=== PATIENT | male | born 1935 ===

== ENCOUNTER 2018-08-21 21:42 | Inpatient (IN) | payer MEDICARE, OTHER ==
[~2018-08-21] VITALS: Ht 167.6 cm; Wt 56.5 kg
[2018-08-21] MEDS ORDERED: FOLI-49 PO (22:39)
[2018-08-21] MEDS ORDERED: ASPI-817 PO (22:39)
[2018-08-21] MEDS ORDERED: ATEN50TA PO (22:39)
[2018-08-21] MEDS ORDERED: TAMS0.4C2 PO (22:39)
[2018-08-21] MEDS ORDERED: DONE5TAB46 PO (22:39)
[2018-08-21] MEDS ORDERED: PANT40TA4 PO (22:39)
[2018-08-21] MEDS ORDERED: PIOG45TA64 PO (22:39)
[2018-08-21] MEDS ORDERED: AMLO2.5T78 PO (22:39)
[2018-08-21] MEDS ORDERED: GLIP5TAB13 PO (22:39)
[2018-08-21] MEDS ORDERED: ATOR20TA65 PO (22:39)
[2018-08-21] MEDS ORDERED: LEVE500T8 PO (22:39)
[2018-08-21] MEDS ORDERED: POTA10TA37 PO (22:39)
[2018-08-22] VITALS (15 sets, daily range): BP systolic 108–148; BP diastolic 45–88; PULSE 50–78; RESP 11–21; Ht 167.6 cm; Wt 56.5 kg
[2018-08-22] MEDS ORDERED: ONDANSETRON 4 MG INJ IV PRN (02:00)
[2018-08-22] MEDS ORDERED: NACL 0.9% 3 ML SYG IV SCH (02:00)
[2018-08-22] MEDS ORDERED: BISACODYL (EC) 5 MG TAB PO PRN (02:00)
[2018-08-22] MEDS ORDERED: ACETAMINOPHEN 325 MG TAB PO PRN (02:00)
[2018-08-22] MEDS ORDERED: DOCUSATE SODIUM 100 MG CAP PO PRN (02:00)
--- NOTE | 2018-08-22 02:00 | ERD ---
ER Documentation Chief Complaint Chief Complaint bib icu charge nurse from icu for aloc upon family HPI This is an 83-year-old male brought in by rescue charges from ICU after having a syncopal episode after hearing with family member passing. Patient denies chest pain palpitations nausea vomiting or chills. Does have history of cardiac disease. Denies other current complaints. No focal neurological complaints. Did not has had. Patient is wheelchair-bound normally and slumped in his wheelchair. No seizure-like activity was noted. No tongue biting or incontinence noted. ROS All systems reviewed and are negative except as per history of present illness. Medications Home Meds Reported Medications Potassium Chloride* (K-Dur*) 10 Meq Tab.prt.sr, 10 MEQ PO for 30 Days, #30 08/21/18 Pioglitazone Hcl* (Pioglitazone Hcl*) 45 Mg Tablet, 45 MG PO DAILY 08/21/18 Atorvastatin Calcium (Atorvastatin Calcium) 20 Mg Tablet, 20 MG PO QHS for 30 Days, #30 08/21/18 Donepezil* (Aricept*) 5 Mg Tablet, 5 MG PO DAILY for 30 Days, #30 08/21/18 Aspirin* (Aspirin* EC) 81 Mg Tablet.dr, 81 MG PO DAILY for 30 Days, #30 08/21/18 Amlodipine Besylate* (Amlodipine Besylate*) 2.5 Mg Tablet, 2.5 MG PO DAILY for 30 Days, #30 08/21/18 Atenolol* (Atenolol*) 50 Mg Tablet, 50 MG PO DAILY for 30 Days, #60 08/21/18 Folic Acid* (Folic Acid*) 1 Mg Tablet, 1 MG PO DAILY for 30 Days, #30 08/21/18 Pantoprazole* (Pantoprazole*) 40 Mg Tablet., 40 MG PO DAILY for 90 Days, #90 08/21/18 Glipizide* (Glipizide*) 5 Mg Tablet, 5 MG PO DAILY for 90 Days, #90 08/21/18 Tamsulosin Hcl* (Tamsulosin Hcl*) 0.4 Mg Cap.er.24h, 0.4 MG PO QHS for 90 Days, #90 take 1 capsule by mouth at bedtime; 90 Days Quantity 08/21/18 Levetiracetam* (Levetiracetam*) 500 Mg Tablet, 500 MG PO BID for 90 Days take 1 tablet by mouth twice a day; 90 Days Quantity 08/21/18 Allergies Allergies: Coded Allergies: No Known Allergy (Unverified , 08/21/18) PMhx/Soc Hx Neurological Disorder: Yes (cva) Hx Cardiac Disorders: Yes (htn) Hx Alcohol Use: No Hx Substance Use: No Hx Tobacco Use: No Smoking Status: Never smoker Physical Exam Vitals Vital Signs Date Temp Pulse Resp B/P (MAP) Pulse Ox O2 O2 Flow FiO2 Time Delivery Rate 08/22/18 55 11 80/41 (54) 99 Room Air 01:00 08/22/18 98.7 55 12 90/47 (61) 100 Room Air 00:34 08/21/18 98.7 45 12 100/41 100 Room Air 23:31 (60) 08/21/18 98.7 53 15 99/41 (60) 98 Room Air 22:33 08/21/18 98.7 52 15 98/54 (69) 98 21:52 Physical Exam Const: No acute distress Head: Atraumatic Eyes: Normal Conjunctiva ENT: Normal External Ears, Nose and Mouth. Neck: Full range of motion. No meningismus. Resp: Clear to auscultation bilaterally Cardio: Regular rate and rhythm, no murmurs Abd: Soft, non tender, non distended. Normal bowel sounds Skin: No petechiae or rashes Back: No midline or flank tenderness Ext: No cyanosis, or edema Neur: Awake and alert Psych: Normal Mood and Affect Result Diagram: 08/21/18219908/21/182199 Results 24 hrs Laboratory Tests Test 08/21/18 22:00 White Blood Count 5.2 10^3/ul Red Blood Count 3.96 10^6/ul Hemoglobin 11.9 g/dl Hematocrit 36.8 % Mean Corpuscular Volume 92.9 fl Mean Corpuscular Hemoglobin 30.1 pg Mean Corpuscular Hemoglobin Concent 32.3 g/dl Red Cell Distribution Width 11.9 % Platelet Count 143 10^3/UL Mean Platelet Volume 9.7 fl Immature Granulocytes % 0.200 % Neutrophils % 36.9 % Lymphocytes % 46.6 % Monocytes % 6.2 % Eosinophils % 8.9 % Basophils % 1.2 % Nucleated Red Blood Cells % 0.0 /100WBC Immature Granulocytes # 0.010 10^3/ul Neutrophils # 1.9 10^3/ul Lymphocytes # 2.4 10^3/ul Monocytes # 0.3 10^3/ul Eosinophils # 0.5 10^3/ul Basophils # 0.1 10^3/ul Nucleated Red Blood Cells # 0.0 10^3/ul Sodium Level 135 mmol/L Potassium Level 4.4 mmol/L Chloride Level 97 mmol/L Carbon Dioxide Level 29 mmol/L Anion Gap 9 Blood Urea Nitrogen 17 mg/dl Creatinine 1.03 mg/dl Est Glomerular Filtrat Rate mL/min mL/min Glucose Level 219 mg/dl Calcium Level 8.9 mg/dl Total Bilirubin 0.5 mg/dl Direct Bilirubin 0.00 mg/dl Indirect Bilirubin 0.5 mg/dl Aspartate Amino Transf (AST/SGOT) 31 IU/L Alanine Aminotransferase (ALT/SGPT) 18 IU/L Alkaline Phosphatase 73 IU/L Troponin I 0.014 ng/ml B-Type Natriuretic Peptide 647 PG/ML Total Protein 6.8 g/dl Albumin 3.8 g/dl Globulin 3.00 g/dl Albumin/Globulin Ratio 1.26 Procedures/MDM EKG: Rate/Rhythm: [Normal Sinus Rhythm] QRS, ST, T-waves: [No changes consistent w/ acute ischemia] Impression: [No evidence of ischemia or arrhythmia] Chest X-ray 1V Interpreted by me: Soft Tissue: No acute abnormalities Bones: No acute abnormalities Mediastinum/Cardiac Silhouette/Lungs: [No acute abnormalities] Patient's syncopal symptoms are unstable at this time and require inpatient workup. No evidence of PE or dissection at this time but occult ischemia or fat al dysrhythmia cannot be ruled out. Patient will be admitted to Dr. Jim at 1:55 AM Departure Diagnosis: Primary Impression: Syncope Syncope type: unspecified Qualified Codes: R55 - Syncope and collapse Condition: Serious REX THOMAS Aug 22, 2018 02:00
[2018-08-22] MEDS ORDERED: DEXTROSE 50% 50 ML SYRINGE IV PRN ×2 (02:30)
[2018-08-22] MEDS ORDERED: GLUCOSE GEL 15 GRAM TUBE PO PRN ×2 (02:30)
[2018-08-22] MEDS ORDERED: GLUCAGON 1 MG INJ IM PRN (02:30)
[2018-08-22] MEDS ORDERED: GLUCOSE GEL 15 GRAM TUBE BUCCAL PRN (02:30)
[2018-08-22] MEDS ORDERED: SOD CHLORIDE 0.9% 1,000 ML IV ONE (02:30)
--- NOTE | 2018-08-22 03:27 | HP ---
Date/Time of Note Date/Time of Note DATE: 08/22/18 TIME: 03:14 Assessment/Plan VTE Prophylaxis SCD applied (from Nsg): Yes Pharmacological prophylaxis: NA/contraindicated Pharm contraindication: low risk/ambulating Assessment/Plan Hospital Course This is a 83-year-old male being admitted to the telemetry floor for: #1 syncope: Neurocardiogenic versus cardiogenic versus vasovagal: Patient is somnolent but arousable however he is not able to answer questions appropriately. EKG shows sinus bradycardia at approximately 46 bpm. Patient's blood pressures were also noted to be hypotensive. He does appear clinically dry. At the current time will obtain a stat CT of the head without contrast. We will also give him a 1 L bolus of normal saline. Labs at the current time appear to be a unremarkable aside from a hemoglobin of 11.9. Will check orthostatic vital signs. Will check an echocardiogram, carotid Doppler. Check hemoglobin A1c, lipid panel, TSH, monitor closely on telemetry. Consult cardiology. Will hold beta-jose and blood pressure medications given sinus bradycardia and hypotension. #2 sinus bradycardia: Monitor closely on telemetry, will hold beta-jose. Consult cardiology. Will check an echocardiogram. #3 hypotension: Suspect dehydration, patient is afebrile, normal white blood cell count. At the current time we will give him a liter bolus of normal saline. Will hold patient's beta blockers and blood pressure medications. #4 hypertension: Hold home BP meds given #3. #5 diabetes mellitus: We will check hemoglobin C, hold home oral medication at the current time, insulin sliding scale #6 BPH: Hold Flomax at the current time given hypotension #7 dementia: Resume omeprazole #8 DVT GI prophylaxis: SCDs, no GI prophylaxis indicated Further treatment strategy will be implemented as per the clinical course. We will need to corroborate history with the family in the a.m., there is no family available at the bedside Reviewed the patient. Result Diagram: 08/21/18219908/21/182199 Results 24hrs Laboratory Tests Test 08/21/18 22:00 White Blood Count 5.2 Red Blood Count 3.96 L Hemoglobin 11.9 L Hematocrit 36.8 L Mean Corpuscular Volume 92.9 Mean Corpuscular Hemoglobin 30.1 Mean Corpuscular Hemoglobin Concent 32.3 Red Cell Distribution Width 11.9 Platelet Count 143 Mean Platelet Volume 9.7 Immature Granulocytes % 0.200 Neutrophils % 36.9 L Lymphocytes % 46.6 Monocytes % 6.2 Eosinophils % 8.9 H Basophils % 1.2 Nucleated Red Blood Cells % 0.0 Immature Granulocytes # 0.010 Neutrophils # 1.9 Lymphocytes # 2.4 Monocytes # 0.3 Eosinophils # 0.5 Basophils # 0.1 Nucleated Red Blood Cells # 0.0 Sodium Level 135 Potassium Level 4.4 Chloride Level 97 Carbon Dioxide Level 29 Anion Gap 9 Blood Urea Nitrogen 17 Creatinine 1.03 Est Glomerular Filtrat Rate mL/min Glucose Level 219 Calcium Level 8.9 Total Bilirubin 0.5 Direct Bilirubin 0.00 Indirect Bilirubin 0.5 Aspartate Amino Transf (AST/SGOT) 31 Alanine Aminotransferase (ALT/SGPT) 18 Alkaline Phosphatase 73 Troponin I 0.014 B-Type Natriuretic Peptide 647 H Total Protein 6.8 Albumin 3.8 Globulin 3.00 Albumin/Globulin Ratio 1.26 HPI/ROS Admit Date/Time Admit Date/Time Hx of Present Illness Chief complaint: Cole almonte called as patient was noted to syncopized in the ICU following family stat The following history was obtained from the ED chart documentation as well as from the nurse as patient was unable to provide adequate history. Patient is a 83-year-old male who was brought in to the ED from the ICU after having a syncopal episode. According to the RN the patient was with the family at the bedside and had a syncopal episode approximately 30 minutes after the of his in the ICU. Patient was immediately taken to the ER where he was noted to have a low BP and low heart rate. As per the [employer] EXAMINER the patient was sitting on the wheelchair and he slumped over but he did not fall to the ground. Patient however it did appear altered and was initially unresponsive. Upon my examination at the bedside the patient is arousable however he does appear confused. He is able to move all 4 of his extremities. No facial droop noted. Skin does appear dry as well as mucous membranes. Allergies: NKDA Medications: See LUCAS MARTÍNEZ Subjective hx not possible: other (Altered, unable to provide adequate history) PMH/Family/Social Past Medical History Seizure disorder, hypertension, diabetes mellitus, BPH, hyperlipidemia, dementia Medications Current Medications Atorvastatin Calcium (Lipitor) 20 mg QHS PO ; Start 08/22/18 at 21:00 Donepezil HCl (Aricept) 5 mg DAILY PO ; Start 08/22/18 at 09:00 Folic Acid (Folic Acid) 1 mg DAILY PO ; Start 08/22/18 at 09:00 Levetiracetam (Keppra) 500 mg BID PO ; Start 08/22/18 at 09:00 Pantoprazole (Protonix Tab) 40 mg DAILY@0600 PO ; Start 08/22/18 at 06:00 IV Flush (NS 3 ml) 3 ml PER PROTOCOL IV ; Start 08/22/18 at 02:00 Ondansetron HCl (Zofran Inj) 4 mg Q6H PRN IV NAUSEA AND/OR VOMITING; Start 08/22/18 at 02:00 Acetaminophen (Tylenol Tab) 650 mg Q6H PRN PO PAIN LEVEL 1-3 OR FEVER; Start 08/22/18 at 02:00 Docusate Sodium (Colace) 100 mg Q12H PRN PO CONSTIPATION; Start 08/22/18 at 02:00 Bisacodyl (Dulcolax) 5 mg DAILY PRN PO CONSTIPATION; Start 08/22/18 at 02:00 Sodium Chloride 1,000 ml @ 1,000 mls/hr Q1H ONCE IV ; Start 08/22/18 at 02:30; Stop 08/22/18 at 03:29 Diagnostic Test (Pha) (Accu-Chek) 1 ea 02 XX ; Start 08/23/18 at 02:00 Insulin Aspart (Novolog Insulin Pen) NOVOLOG *MILD* ALGORITHM WITH MEALS BEDTIME SC ; Start 08/22/18 at 08:00 Miscellaneous Information 1 ea NOTE XX ; Start 08/22/18 at 02:30 Glucose (Glutose) 15 gm Q15M PRN PO DECREASED GLUCOSE; Start 08/22/18 at 02:30 Glucose (Glutose) 22.5 gm Q15M PRN PO DECREASED GLUCOSE; Start 08/22/18 at 02:30 Dextrose (D50w Syringe) 25 ml Q15M PRN IV DECREASED GLUCOSE; Start 08/22/18 at 02:30 Dextrose (D50w Syringe) 50 ml Q15M PRN IV DECREASED GLUCOSE; Start 08/22/18 at 02:30 Glucagon (Glucagen) 1 mg Q15M PRN IM DECREASED GLUCOSE; Start 08/22/18 at 02:30 Glucose (Glutose) 15 gm Q15M PRN BUCCAL DECREASED GLUCOSE; Start 08/22/18 at 02:30 Coded Allergies: No Known Allergy (Unverified , 08/21/18) Past Surgical History Altered, unable to provide adequate history Family History Significant Family History: no pertinent family hx Social History Altered, unable to provide adequate history Smoking Status: Unknown if ever smoked Exam/Review of Systems Vital Signs Vitals Vital Signs Date Temp Pulse Resp B/P (MAP) Pulse Ox O2 O2 Flow FiO2 Time Delivery Rate 08/22/18 98.7 54 13 100/85 100 Room Air 02:01 (90) Exam Exam General: Patient is currently lying in bed he does not appear to be in any acute distress, he is arousable but he appears lethargic. HEENT: Atraumatic, normocephalic. The pupils are equal, round and reactive. Extraocular motor are intact, dry mucous membranes Neck: Supple with full range of motion. No rigidity or meningismus Chest: Nontender Lungs: Clear to auscultation bilaterally no crackles rales or wheezing Heart: Sinus bradycardia Abdomen: Soft , nontender, nondistended , bowel sounds are present. No guarding no rebound tenderness , No masses or organomegaly. No costovertebral temporal angle mass Extremities: Normal to inspection, no edema no cyanosis Skin: Tenting Neurologic: Somnolent but arousable. When answering questions he does appear to be altered. No facial droop noted. Able to move all 4 extremities but strength is diminished throughout. Additional Comments EKG: Sinus bradycardia at approximately 46 bpm, no ST or T wave abnormalities concerning for acute ischemia. QT normal PROCEDURE: XR 1 view Chest. CLINICAL INDICATION: Syncope. TECHNIQUE: Portable Single frontal view of the chest was obtained. COMPARISON: There are no similar studies submitted for comparison. FINDINGS: The heart is normal in size. There are extensive aortic calcifications. There is no focal consolidation. There is no pleural effusion. No pneumothorax is identified. The osseous structures are intact.There are surgical clips within the right upper quadrant suggesting prior cholecystectomy. IMPRESSION: No significant change. No evidence for acute cardiopulmonary disease. Aortic calcifications. Further findings as detailed above. RPTAT: HVF .Ian Fodera, MD, MD Date Time Electronically viewed and signed by .Ian Vásquez MD, MD on 08/21/2018 23:30 .F/ CC: REX THOMAS [id number] DANIEL PABLO Aug 22, 2018 03:24
[2018-08-22] MEDS ORDERED: SOD CHLORIDE 0.9% 500 ML IV ONE (07:30)
--- NOTE | 2018-08-22 09:00 | NUR ---
Admit from ER 83 Y/O male with admitting diagnosis of Syncope, A/A/O X 2-3, NAD, no complaints at this time, will continue to monitor.
[2018-08-22] MEDS: INSULIN ASPART [NOVOLOG] 3 ML PEN SC SCH ×4 (09:58→20:49)
[2018-08-22] MEDS: FOLIC ACID 1 MG TAB PO SCH (09:59)
[2018-08-22] MEDS: PANTOPRAZOLE (EC) 40 MG TAB PO SCH ×2 (09:59→10:00)
[2018-08-22] MEDS: LEVETIRACETAM 500 MG TAB PO SCH ×2 (09:59→20:49)
[2018-08-22] MEDS: DONEPEZIL 5 MG TAB PO SCH ×2 (10:00→15:28)
--- NOTE | 2018-08-22 14:16 | PN ---
Date/Time of Note Date/Time of Note DATE: 08/22/18 TIME: 14:14 Assessment/Plan VTE Prophylaxis SCD applied (from Nsg): Yes Pharmacological prophylaxis: heparin Lines/Catheters IV Catheter Type (from Nrsg): Saline Lock Urinary Cath still in place: No Assessment/Plan Hospital Course 83 yo male with h/o CVA, dementia, DMII who presents with syncope - Syncope likely vasovagal event. Has had mild hypotension, we will hold BP meds - Requires placement given his has and he is now alone at home, has dementia and unable to care for self Result Diagram: 08/22/1851008/22/18510 Results 24hrs Laboratory Tests Test 08/21/18 22:00 08/22/18 05:11 08/22/18 09:22 08/22/18 09:57 White Blood Count 5.2 6.0 Red Blood Count 3.96 L 3.49 L Hemoglobin 11.9 L 10.5 L Hematocrit 36.8 L 32.3 L Mean Corpuscular 92.9 92.6 Volume Mean Corpuscular 30.1 30.1 Hemoglobin Mean Corpuscular 32.3 32.5 Hemoglobin Concent Red Cell 11.9 12.2 Distribution Width Platelet Count 143 158 Mean Platelet Volume 9.7 9.7 Immature 0.200 0.300 Granulocytes % Neutrophils % 36.9 L 62.1 Lymphocytes % 46.6 25.3 Monocytes % 6.2 6.4 Eosinophils % 8.9 H 4.7 Basophils % 1.2 1.2 Nucleated Red Blood 0.0 0.0 Cells % Immature 0.010 0.020 Granulocytes # Neutrophils # 1.9 3.7 Lymphocytes # 2.4 1.5 Monocytes # 0.3 0.4 Eosinophils # 0.5 0.3 Basophils # 0.1 0.1 Nucleated Red Blood 0.0 0.0 Cells # Sodium Level 135 136 Potassium Level 4.4 4.8 Chloride Level 97 100 Carbon Dioxide Level 29 31 Anion Gap 9 5 Blood Urea Nitrogen 17 17 Creatinine 1.03 0.96 Est Glomerular Filtrat Rate mL/min Glucose Level 219 137 # Calcium Level 8.9 8.7 Total Bilirubin 0.5 0.5 Direct Bilirubin 0.00 0.00 Indirect Bilirubin 0.5 0.5 Aspartate Amino 31 29 Transf (AST/SGOT) Alanine 18 19 Aminotransferase (AL T/SGPT) Alkaline Phosphatase 73 62 Troponin I 0.014 0.013 < 0.012 B-Type Natriuretic 647 H Peptide Total Protein 6.8 6.6 Albumin 3.8 3.5 Globulin 3.00 3.10 Albumin/Globulin 1.26 1.12 Ratio Hemoglobin A1c 5.6 Magnesium Level 2.2 Iron Level 62 Total Iron Binding 291 Capacity Percent Iron 21 L Saturation Ferritin 96.4 Creatine Kinase 153 159 Creatine Kinase 0.5 0.5 Index Creatinine Kinase MB 0.80 0.87 (Mass) Triglycerides Level 42 Cholesterol Level 100 LDL Cholesterol, 42 Calculated HDL Cholesterol 50 Cholesterol/HDL 2.0 Ratio Thyroid Stimulating 1.400 Hormone (TSH) Bedside Glucose 75 Test 08/22/18 12:15 08/22/18 13:46 Bedside Glucose 100 100 Subjective 24 Hr Interval Summary Free Text/Dictation No evidence of arrythmia Patient with dementia but denies physical complaints Daughter at bedside says just who was his reservoir caretaker, now he is alone. She is requesting placement Exam/Review of Systems Vital Signs Vitals Vital Signs Date Temp Pulse Resp B/P (MAP) Pulse Ox O2 O2 Flow FiO2 Time Delivery Rate 08/22/18 59 12:00 08/22/18 21 137/88 80 Room Air 11:00 (104) 08/22/18 98.0 09:00 Medications Medications Current Medications Atorvastatin Calcium (Lipitor) 20 mg QHS PO ; Start 08/22/18 at 21:00 Donepezil HCl (Aricept) 5 mg DAILY PO ; Start 08/22/18 at 09:00 Folic Acid (Folic Acid) 1 mg DAILY PO Last administered on 08/22/18at 09:59; Admin Dose 1 MG; Start 08/22/18 at 09:00 Levetiracetam (Keppra) 500 mg BID PO Last administered on 08/22/18at 09:59; Admin Dose 500 MG; Start 08/22/18 at 09:00 Pantoprazole (Protonix Tab) 40 mg DAILY@0600 PO Last administered on 08/22/18at 10:00; Admin Dose 40 MG; Start 08/22/18 at 06:00 IV Flush (NS 3 ml) 3 ml PER PROTOCOL IV ; Start 08/22/18 at 02:00 Ondansetron HCl (Zofran Inj) 4 mg Q6H PRN IV NAUSEA AND/OR VOMITING; Start 08/22/18 at 02:00 Acetaminophen (Tylenol Tab) 650 mg Q6H PRN PO PAIN LEVEL 1-3 OR FEVER; Start 08/22/18 at 02:00 Docusate Sodium (Colace) 100 mg Q12H PRN PO CONSTIPATION; Start 08/22/18 at 02:00 Bisacodyl (Dulcolax) 5 mg DAILY PRN PO CONSTIPATION; Start 08/22/18 at 02:00 Diagnostic Test (Pha) (Accu-Chek) 1 ea 02 XX ; Start 08/23/18 at 02:00 Insulin Aspart (Novolog Insulin Pen) NOVOLOG *MILD* ALGORITHM WITH MEALS BEDTIME SC ; Start 08/22/18 at 08:00 Miscellaneous Information 1 ea NOTE XX ; Start 08/22/18 at 02:30 Glucose (Glutose) 15 gm Q15M PRN PO DECREASED GLUCOSE; Start 08/22/18 at 02:30 Glucose (Glutose) 22.5 gm Q15M PRN PO DECREASED GLUCOSE; Start 08/22/18 at 02:30 Dextrose (D50w Syringe) 25 ml Q15M PRN IV DECREASED GLUCOSE; Start 08/22/18 at 02:30 Dextrose (D50w Syringe) 50 ml Q15M PRN IV DECREASED GLUCOSE; Start 08/22/18 at 02:30 Glucagon (Glucagen) 1 mg Q15M PRN IM DECREASED GLUCOSE; Start 08/22/18 at 02:30 Glucose (Glutose) 15 gm Q15M PRN BUCCAL DECREASED GLUCOSE; Start 08/22/18 at 02:30 JAY SHINE MD Aug 22, 2018 14:16
--- NOTE | 2018-08-22 15:16 | NUR ---
CM NOTES: THIS CM RECEIVED ORDER FOR SNF PLACEMENT. PT IS TELE BOARDER IN ICU. S/W PT'S DAUGHTER, JONN [phone] ABOUT THE SNF. PT'S JUST IN ICU YESTERDAY. PER THE DAUGHTER, PT WAS LIVING WITH HIS AND USED W/C, BSC AND HEMIWALKER AT HOME. HOWEVER, NOW PT CANNOT BE DC HOME. THIS CM INFORMED HER THAT PT CAN BE PLACED SHORT TERM ONLY IN A SNF OF HER CHOICE. SHE UNDERSTOOD THAT SHE HAS A RIGHT TO CHOOSE A SNF. SHE INDICATED THAT SHE WANTS TO SPEAK TO DR HORN, PCP FIRST REGARDING THE CHOICES. SHE ALSO UNDERSTOOD THAT IT IS SHORT TERM AND THIS CM MENTIONED TO HER B&C VS ASSISTING LIVING. PT'S DAUGHTER WILL CALL THIS CM WITH HER CHOICES OF SNF AFTER SHE SPEAKS TO HER PCP. INFORMED SWER IN THE UNIT WITH THE UPDATE. A CM WILL REMAIN AVAILABLE. CHELSEA WITT CM [id number] Addendum: 08/22/18 at 1521 by CHELSEA STEWART CM Amended: Links added.
--- NOTE | 2018-08-22 19:00 | NUR ---
EOSS: Stable since admit from ER, no acute change noted, for transfer to Med. Surg. Floor, Pt's. daughter notified on the transfer & room number.
[2018-08-22] MEDS ORDERED: ATORVASTATIN 20 MG TAB PO SCH (21:00)
--- NOTE | 2018-08-22 21:29 | NUR ---
EOSS: Pt stable, now Med-Surg status, no new neuro deficits noted, vital signs stable, afebrile, noted right hand stiffness but is chronic accdg to pt and daughter, weakness on right leg. Pt transfer by bed. incontinent, no pain, no signs of distress. due meds for 2100 adm., no problems swallowing pill. [id number], no coverage. Addendum: 08/22/18 at 2232 by KEV NOEL RN Report given to nurse DOMINIC , pt transported by bed with belongings , no valuable noted. Pt stable
--- NOTE | 2018-08-22 22:20 | RADRPT ---
Echocardiogram Report Patient Name: BART HADLEY Gender: Male Date: 1935 Study Date: 22-Aug-2018 [employer] Senior Executive: Angelica Nunez BUSHRA Location: 120 Ref. Physician: DANIEL PABLO Quality: Adequate Procedures: Transthoracic echocardiogram with complete 2D, M-Mode, and doppler examination. Indications: Syncope. 2D/M Mode Doppler Measurement Value Normal Ranges Measurement Value Normal Ranges LVIDd 2D 4.8 3.5 - 5.6 cm AV Peak Pablo 1.6 m/sec LVIDs 2D 2.6 2.1 - 4.1 cm AV Peak PG 11.0 mmHg LVPWd 2D 0.9 0.6 - 1.1 cm LVOT Peak Pablo 0.8 m/sec IVSd 2D 0.9 0.6 - 1.1 cm LVOT Peak PG 2.0 mmHg AoR Diam 2D 2.7 2.0 - 3.7 cm MV E Peak Pablo 0.7 m/sec LA/Ao 2D 1 0 - 1 MV A Peak Pablo 0.8 m/sec LA Dimen 2D 2.7 2.3 - 4.0 cm MV E/A 0.9 MV Decel Time 232 msec Lat E` Pablo 0.1 m/sec Lateral E/E` 6.9 MV E/A 0.9 TR Peak Pablo 2.8 m/sec TR Peak PG 31.0 mmHg RVSP 41.0 mmHg RA Pressure 10.0 Findings Left Ventricle: Normal left ventricular systolic function. Normal left ventricular cavity size. Normal left ventricular wall thickness. Ejection fraction is visually estimated at 60 %. Tissue Doppler/Mitral Doppler indices are consistent with impaired relaxation (Stage I diastolic dysfunction). Right Ventricle: Normal right ventricular size. Normal right ventricular systolic function. Left Atrium: The left atrium is normal in size. Right Atrium: The right atrium is normal in size. Mitral Valve: Normal appearance and function of the mitral valve with trace physiologic regurgitation. Aortic Valve: No significant aortic stenosis or insufficiency. Aortic valve not well visualized. Aortic cusps appear mildly calcified. Tricuspid Valve: Normal appearance of the tricuspid valve. Estimated peak PA systolic pressure 34 mmHg. There is trace tricuspid regurgitation. Pulmonic Valve: Pulmonic valve not well visualized. Pericardium: Normal pericardium with no significant pericardial effusion. Aorta: Normal aortic root. IVC: Normal size and normal respiratory collapse consistent with normal right atrial pressure. Conclusions Normal left ventricular systolic function. Normal left ventricular cavity size. Normal left ventricular wall thickness. Ejection fraction is visually estimated at 60 %. Tissue Doppler/Mitral Doppler indices are consistent with impaired relaxation (Stage I diastolic dysfunction). Normal appearance and function of the mitral valve with trace physiologic regurgitation. No significant aortic stenosis or insufficiency. Aortic valve not well visualized. Aortic cusps appear mildly calcified. Normal appearance of the tricuspid valve. Estimated peak PA systolic pressure 34 mmHg. There is trace tricuspid regurgitation. Electronically Signed By: Car Larson 22-Aug-2018 22:19:41 -0800 Patient Name: BART HADLEY Study Date: 22-Aug-[id number]
[2018-08-23 02:00] VITALS: BP_SYST 120; BP_SYST 123; BP_DIAS 56; BP_DIAS 58; PULSE 74; RESP 18
[2018-08-23] MEDS ORDERED: ACCU-CHEK XX SCH (02:00)
[2018-08-23] MEDS: PANTOPRAZOLE (EC) 40 MG TAB PO SCH (05:34)
--- NOTE | 2018-08-23 06:22 | NUR ---
VS afebrile and orthostatic BP taken. No acute changes or s/s of respiratory distress during shift. Inventory done and pictures taken. Pt denied having pain. Repositioned pt q2h with pt able to assist. Hourly rounding provided. Fall precautions observed with call light within reach. Will endorse to oncoming nurse continuity of care.
[2018-08-23] MEDS: INSULIN ASPART [NOVOLOG] 3 ML PEN SC SCH ×4 (07:58→20:18)
[2018-08-23] MEDS: FOLIC ACID 1 MG TAB PO SCH (08:00)
[2018-08-23] MEDS: LEVETIRACETAM 500 MG TAB PO SCH (08:00)
[2018-08-23] MEDS: DONEPEZIL 5 MG TAB PO SCH (08:00)
[2018-08-23 08:38] VITALS: BP 117/57; PULSE 50; RESP 18
[2018-08-23 08:39] VITALS: BP 126/58; PULSE 68; RESP 18
--- NOTE | 2018-08-23 10:30 | NUR ---
SS Note: Consult The patient is an 83-year-old male brought in by charges from ICU after having a syncopal episode after hearing his spouse . LEYDI spoke with pt's daughter/spokesperson Summer Pena . She stated she is working on cemetery arrangements for her mother/pt's spouse, however, the cemetery is requesting a letter from MD stating pt is hospitalized and physically and emotionally unable to make cemetery arrangements in order for daughter to be able to work on those arrangements. LEYDI provided support and notified attending, Dr. Mathews who agreed to write letter. Per Summer, she is the only child and spokesperson for the pt. Pt was living at home with spouse and unable to return at this time after spouse's passing. Daughter is requesting SNF placement. Please see CM notes regarding SNF placement. Addendum: 08/23/18 at [address] [place] [address] Mathews wrote letter. LEYDI faxed letter to [facility] , per daughter's request.
--- NOTE | 2018-08-23 10:44 | NUR ---
PT EVALUATION , S: RN CLEARED , PATIENT ALERT AND ORIENTED TO NAME AND LAS NAME , DISORIENTED AND CONFUSED TO DAY, MONTH AND YEAR, BUT ABLE TO FOLLOW ONE SIMPLE STEP COMMAND IN [place] VS [place] / PATIENT IS A 83 Y/O MALE WITH PMH: LT CVA , RT VANESA, DEMENTIA , DM, ADMITTED TO [facility] DUE TO SYNCOPE, SINUS BRADYCARDIA AND HYPOTENSION , PATIENT FOUND IN BED IN SUPINE POSITION , INSTRUCTED BRANDT IN SAFETY , FALL PRECAUTION AND PROPER BED MOBILITY TR , WELL A/ROM EXE'S BLE'S INCLUDING: AP, KNEE FLEX, EXT, SAQ AND LAQ , P/S SEE PT NOTE FOR PATIENT'S FUNCTIONAL STATUS , PATIENT ABLE TO STAND UP WITH MAX AND MAX VC'S WITH VANESA WAKER ABLE TO PERFORM STANDING PIVOT TRANSFER TO CHAIR WITH MAX A AND MAX VC'S FO SEQUENCING , PATIENT HAS POOR FUNCTIONAL ENDURANCE , FATIGUES EASILY RETURNED BACK TO BED WITH MAX , VS STABLE TOLERATED TREATMENT FAIRLY , PATIENT IS CLEARED TO GET OOB TO W/C WITH NSG STAFF , RN NOTIFIED . A: PATIENT USED TO LIVE WITH WITW IN AN APARTMENT , RECENTLY , PATIENT IS NONAMBULATORY , OWNS W/C , BSC, AND VANESA WALKER , PT RECOMMEND SNF PLACEMENT ONCE CLEARED BY MD . P: PT DAILY X5 ( BED MOBILITY TR, THERA EXE'S , PRE-GAIT TR W/VANESA WALKER , STANDING PIVOT TRANSFER TO CAIR / VS W/C ,PATIENT EDUCATION , AND TRAINING .
--- NOTE | 2018-08-23 14:43 | PN ---
Date/Time of Note Date/Time of Note DATE: 08/23/18 TIME: 14:42 Assessment/Plan VTE Prophylaxis Risk score (from Nsg)>0 risk: 5 SCD applied (from Nsg): Yes Pharmacological prophylaxis: heparin Lines/Catheters IV Catheter Type (from Nrsg): Saline Lock Urinary Cath still in place: No Assessment/Plan Hospital Course 83 yo male with h/o CVA, dementia, DMII who presents with syncope - Syncope likely vasovagal event. Has had mild hypotension, we will hold BP meds - Requires placement in SNF given his has and he is now alone at home, has dementia and unable to care for self Result Diagram: 08/22/18 0511 08/22/18 0511 Results 24hrs Laboratory Tests Test 08/22/18 15:00 08/22/18 17:29 08/22/18 17:35 08/22/18 20:44 Stool Occult Blood NEGATIVE Bedside Glucose 132 128 Urine Color YELLOW Urine Clarity CLEAR Urine pH 5.0 Urine Specific 1.013 [place] Urine Ketones NEGATIVE Urine Nitrite NEGATIVE Urine Bilirubin NEGATIVE Urine Urobilinogen NEGATIVE Urine Leukocyte NEGATIVE Esterase Urine Microscopic 0 RBC Urine Microscopic 1 WBC Urine Bacteria FEW A Urine Hemoglobin 1+ H Urine Glucose NEGATIVE Urine Total Protein NEGATIVE Test 08/23/18 07:56 08/23/18 11:56 Bedside Glucose 91 111 Subjective 24 Hr Interval Summary Free Text/Dictation Resting comfortably No change to clinical status Awaiting placement Exam/Review of Systems Vital Signs Vitals Vital Signs Date Temp Pulse Resp B/P (MAP) Pulse Ox O2 O2 Flow FiO2 Time Delivery Rate 08/23/18 68 18 126/58 99 08:39 (80) 08/23/18 98.1 08:38 08/22/18 Room Air 19:00 Intake and Output 08/22/18 08/22/18 08/23/18 1515:00 23:00 07:00 IntakeIntake Total 500 ml 250 ml 240 ml BalanceBalance 500 ml 250 ml 240 ml Medications Medications Current Medications Donepezil HCl (Aricept) 5 mg DAILY PO Last administered on 08/23/18at 08:00; Admin Dose 5 MG; Start 08/22/18 at 09:00 Folic Acid (Folic Acid) 1 mg DAILY PO Last administered on 08/23/18at 08:00; Admin Dose 1 MG; Start 08/22/18 at 09:00 Levetiracetam (Keppra) 500 mg BID PO Last administered on 08/23/18at 08:00; Admin Dose 500 MG; Start 08/22/18 at 09:00 Pantoprazole (Protonix Tab) 40 mg DAILY@0600 PO Last administered on 08/23/18at 05:34; Admin Dose 40 MG; Start 08/22/18 at 06:00 IV Flush (NS 3 ml) 3 ml PER PROTOCOL IV ; Start 08/22/18 at 02:00 Ondansetron HCl (Zofran Inj) 4 mg Q6H PRN IV NAUSEA AND/OR VOMITING; Start 08/22/18 at 02:00 Acetaminophen (Tylenol Tab) 650 mg Q6H PRN PO PAIN LEVEL 1-3 OR FEVER; Start 08/22/18 at 02:00 Docusate Sodium (Colace) 100 mg Q12H PRN PO CONSTIPATION; Start 08/22/18 at 02:00 Bisacodyl (Dulcolax) 5 mg DAILY PRN PO CONSTIPATION; Start 08/22/18 at 02:00 Insulin Aspart (Novolog Insulin Pen) NOVOLOG *MILD* ALGORITHM WITH MEALS BEDTIM E SC ; Start 08/22/18 at 08:00 Miscellaneous Information 1 ea NOTE XX ; Start 08/22/18 at 02:30 Glucose (Glutose) 15 gm Q15M PRN PO DECREASED GLUCOSE; Start 08/22/18 at 02:30 Glucose (Glutose) 22.5 gm Q15M PRN PO DECREASED GLUCOSE; Start 08/22/18 at 02:30 Dextrose (D50w Syringe) 25 ml Q15M PRN IV DECREASED GLUCOSE; Start 08/22/18 at 02:30 Dextrose (D50w Syringe) 50 ml Q15M PRN IV DECREASED GLUCOSE; Start 08/22/18 at 02:30 Glucagon (Glucagen) 1 mg Q15M PRN IM DECREASED GLUCOSE; Start 08/22/18 at 02:30 Glucose (Glutose) 15 gm Q15M PRN BUCCAL DECREASED GLUCOSE; Start 08/22/18 at 02:30 JAY SHINE MD Aug 23, 2018 14:43
[2018-08-23 15:37] VITALS: BP 110/52; PULSE 66; RESP 18
[2018-08-23 15:38] VITALS: BP 118/62; PULSE 62; RESP 18
--- NOTE | 2018-08-23 16:09 | NUR ---
DC PLANS SNF PLACEMENT; CHOICE OF [facility] :[facility],ACCEPTED BY [facility] , WILL TRANSFER AFTER 3 QUALIFYING DAYS. PATIENT HAS [facility]. Addendum: 08/23/18 at 1611 by KAYDEN HENDERSON CM Amended: Links added.
--- NOTE | 2018-08-23 17:42 | NUR ---
Patient is alert and oriented x1. patient is confused however when redirected he is able to respond correctly. patient's bloof glucose was within normal limits and only needed coverage of 1 unit with dinner. patient's vital signs within normal limits, remained afebrile this shift. patient denied pain and shortness of breath. will continue to monitor. fall precaution in place, call light within reach. will endorse to manager shift nurse.
[2018-08-23 20:00] VITALS: BP_SYST 107; BP_SYST 110; BP_DIAS 54; BP_DIAS 62; PULSE 68; PULSE 70; RESP 18
[2018-08-23] MEDS: HEPARIN 5,000 UNIT/1 ML VIAL SC SCH (20:17)
[2018-08-24] VITALS (7 sets, daily range): BP systolic 96–133; BP diastolic 50–63; PULSE 57–76; RESP 17–18
--- NOTE | 2018-08-24 06:28 | NUR ---
VS stable and pt afebrile. Pt A&O x1-2 with frequent reorienting needed. No acute changes or s/s of respiratory distress during shift. BG checked ACHS and BG is WNL. Repositioned pt Q2h. Orthostatic BP taken. OT consult was ordered. Hourly rounding provided. Fall precautions observed with call light within reach. Pt might get d/c to SNF within the next 3 days; Will endorse to oncoming nurse.
[2018-08-24] MEDS: INSULIN ASPART [NOVOLOG] 3 ML PEN SC SCH ×4 (07:51→21:06)
[2018-08-24] MEDS: HEPARIN 5,000 UNIT/1 ML VIAL SC SCH ×2 (08:28→20:59)
--- NOTE | 2018-08-24 10:26 | NUR ---
PT NOTE , RN CLEARED , PATIENT AGREEABLE , PATIENT FOUND IN BED IN SUPINE POSITION , ABLE TO PERFORM A/ROM EXE'S BLE'C , TOLERATED 15' SITTING AT EOB , PERFORMED DYNAMIC STANDING BALANCE EXE'S , DECLINED STANDING DUE TO NEEDED TO BE CLEANED , VS STABLE , TOLERATED TREATMENT WELL ,, PATIENT IS CLEARED TO GET OOB WITH NSG STAFF , RN NOTIFIED . A: PT RECOMMEND SNF/REHAB PLACEMENT ONCE CLEARED BY MD . P: CONTINUE WITH POC .
--- NOTE | 2018-08-24 11:30 | NUR ---
OT EVAL PATIENT IS A 83 Y/O MALE WITH PMH: LT CVA , RT VANESA, DEMENTIA , DM, ADMITTED TO [facility] DUE TO SYNCOPE, SINUS BRADYCARDIA AND HYPOTENSION PLOF: PATIENT USED TO LIVE WITH IN AN APARTMENT, ASSISTED PT WITH ADL'S AND TRANSFERS. RECENTLY , PATIENT IS NONAMBULATORY , OWNS W/C , BSC, AND VANESA WALKER. CLOF: RN cleared pt for skilled OT tx. Pt received supine in bed and agreeable for tx stating 0/10 pain. Pt AOx1 (person) and follows 1 step commands. Pt wiped face using his left hand with min A. Pt required Max A to perform supine->sit at EOB. Seated at EOB pt has a tendency to be retropulsive and requires Max A to sit up. Pt returned to bed with Max A. Pt left with all needs in reach. RN notified. Pt will benefit from skilled OT tx 1 x daily for 3-5x week to increase safety awareness, strength, balance and independence with ADL's. Recommend d/c to SNF once medically cleared by .
--- NOTE | 2018-08-24 13:23 | PN ---
Date/Time of Note Date/Time of Note DATE: 08/24/18 TIME: 13:23 Assessment/Plan VTE Prophylaxis Risk score (from Nsg)>0 risk: 9 SCD applied (from Nsg): Yes Pharmacological prophylaxis: heparin Lines/Catheters IV Catheter Type (from Nrsg): Saline Lock Urinary Cath still in place: No Assessment/Plan Hospital Course 83 yo male with h/o CVA, dementia, DMII who presents with syncope - Syncope likely vasovagal event. Has had mild hypotension, we will hold BP meds - Requires placement in SNF given his has and he is now alone at home, has dementia and unable to care for self Result Diagram: 08/22/18 0511 08/22/18 0511 Results 24hrs Laboratory Tests Test 08/23/18 17:35 08/23/18 20:15 08/24/18 07:50 08/24/18 12:00 Bedside Glucose 159 151 97 154 Subjective 24 Hr Interval Summary Free Text/Dictation No change to clinical status Awaits placement tomorrow Exam/Review of Systems Exam Vitals Vital Signs Date Temp Pulse Resp B/P (MAP) Pulse Ox O2 O2 Flow FiO2 Time Delivery Rate 08/24/18 101/50 10:28 (67) 08/24/18 98.0 57 17 97 Room Air 08:00 Intake and Output 08/23/18 08/23/18 08/24/18 1515:00 23:00 07:00 IntakeIntake Total 240 ml 240 ml BalanceBalance 240 ml 240 ml Results Results 24hrs Laboratory Tests Test 08/23/18 17:35 08/23/18 20:15 08/24/18 07:50 08/24/18 12:00 Bedside Glucose 159 151 97 154 JAY SHINE MD Aug 24, 2018 13:23
--- NOTE | 2018-08-24 16:25 | NUR ---
RN Notes: Patient remains alert and awake with period of forgetful reoriented as needed, afebrile, breathing even and unlabored, no sob noted, denies pain/discomfort. Seen by PT/OT services and did some therapy to pt with fair tolerance. Accucheck done, insulin adm as per sliding scale, no s/sx of hypo/hyperglycemia noted as of this time. Kept clean and comfortable. Hourly rounding done, call light within reach, bed alarm on. Will continue to monitor until the end of the shift. Addendum: 08/24/18 at 1752 by JOEY SANTOS RN No significant changes during this shift. Will endorse for continuity of care.
[2018-08-25 02:00] VITALS: BP_SYST 100; BP_SYST 107; BP_DIAS 51; BP_DIAS 55; PULSE 67; RESP 18
[2018-08-25] MEDS: INSULIN ASPART [NOVOLOG] 3 ML PEN SC SCH ×3 (07:44→17:09)
[2018-08-25 08:00] VITALS: BP_SYST 114; BP_SYST 123; BP_DIAS 55; BP_DIAS 61; PULSE 60; PULSE 61; RESP 18
[2018-08-25] MEDS: HEPARIN 5,000 UNIT/1 ML VIAL SC SCH (08:35)
--- NOTE | 2018-08-25 11:29 | NUR ---
PT NOTE [facility] Patient: Carlos Sánchez : 1935 Age/Sex: 83/M Unit#: [id number] Room/Bed: 226/A User: Heide Davis PTA Date: 08/25/18 11:29 Type: PT Technical Record Therapy day number 3 Subjective Denies pain Pain Scale NUMERIC Pain Intensity 0 (0-10) Patient Stated Goal for Pain Relief 0 (0-10) Pain Level Comment no c/o pain Exercise Assessment Label Bilat Lower Extremity Exercise Type Active ROM Additional Exercise Comments BLE/BUEs all planes Exercise Start Time 11:06 Exercise End Time 11:29 Total Exercise Time 23 min (8-127) Additional Mobility Comments refused EOB Patient uses wheelchair Not Applicable Additional Gait Comments refused OOB Additional Balance Assessments Comments refused EOB/OOB activities Safety Judgement Fair Activity Tolerance Poor Post Treatment Pain Intensity 0 0-10 Total Treament Time 23 min (8-127) Total Minutes 23 Total Units 2 PT Technical Record Comment S: JAQUAN Micehlle cleared pt for PT. Pt had no c/o pain and w/ max encouragement from this therapist agreeable to therapeutic exercises only O: Received pt in semifowler. Performed AROME; in all planes. Attempted EOB/OOB activities however pt refused. Educated on benefit and importance of EOB and OOB activities and despite max encouragement from this therapist pt continued to refuse. Stated, "I already tried earlier. I don't want to do it." Respected pt's wishes. Positioned pt to comfort in semifowler. Call light/phone within reach. Bed alarm on. Needs met A: Poor tolerance to tx. Required max encouragement to participate in physical therapy activities P: Continue w/ POC and progress as tolerated
--- NOTE | 2018-08-25 11:30 | NUR ---
Discharge planning; Followed up with [facility] , spoke with Valerie about Patient's admission, at this time they were in a meeting. Upon call back; requested for SNF packet as to turn in to Admission review department and will call back with room number once accepted. Collated reports and faxed to ; will await for their call back.
[2018-08-25 14:00] VITALS: BP_SYST 119; BP_SYST 123; BP_DIAS 56; BP_DIAS 58; PULSE 67; PULSE 73; RESP 18
--- NOTE | 2018-08-25 14:02 | DS ---
Date/Time of Note Date/Time of Note DATE: 08/25/18 TIME: 14:02 Discharge Summary Admission/Discharge Info Admit Date/Time Aug 22, 2018 at 01:57 Discharge Date/Time Discharge Diagnosis Syncope Dementia Patient Condition: Stable Hospital Course 83 yo male with h/o CVA, dementia, DMII who presented with syncope - Syncope was likely a vasovagal event. Has had mild hypotension and BP meds were held - Required placement in SNF given his has and he is now alone at home, has dementia and unable to care for self. This was arranged Home Meds Reported Medications Potassium Chloride* (K-Dur*) 10 Meq Tab.prt.sr, 10 MEQ PO for 30 Days, #30 08/21/18 Pioglitazone Hcl* (Pioglitazone Hcl*) 45 Mg Tablet, 45 MG PO DAILY 08/21/18 Atorvastatin Calcium (Atorvastatin Calcium) 20 Mg Tablet, 20 MG PO QHS for 30 Days, #30 08/21/18 Donepezil* (Aricept*) 5 Mg Tablet, 5 MG PO DAILY for 30 Days, #30 08/21/18 Aspirin* (Aspirin* EC) 81 Mg Tablet.dr, 81 MG PO DAILY for 30 Days, #30 08/21/18 Amlodipine Besylate* (Amlodipine Besylate*) 2.5 Mg Tablet, 2.5 MG PO DAILY for 30 Days, #30 08/21/18 Atenolol* (Atenolol*) 50 Mg Tablet, 50 MG PO DAILY for 30 Days, #60 08/21/18 Folic Acid* (Folic Acid*) 1 Mg Tablet, 1 MG PO DAILY for 30 Days, #30 08/21/18 Pantoprazole* (Pantoprazole*) 40 Mg Tablet.dr, 40 MG PO DAILY for 90 Days, #90 08/21/18 Glipizide* (Glipizide*) 5 Mg Tablet, 5 MG PO DAILY for 90 Days, #90 08/21/18 Tamsulosin Hcl* (Tamsulosin Hcl*) 0.4 Mg Cap.er.24h, 0.4 MG PO QHS for 90 Days, #90 take 1 capsule by mouth at bedtime; 90 Days Quantity 08/21/18 Levetiracetam* (Levetiracetam*) 500 Mg Tablet, 500 MG PO BID for 90 Days take 1 tablet by mouth twice a day; 90 Days Quantity 08/21/18 Primary Care Provider Otcavio Hickey MD Pending Labs Laboratory Tests Test 08/24/18 17:19 08/24/18 21:03 08/25/18 07:43 08/25/18 11:53 Bedside 137 192 102 135 Glucose mg/dL (70-220) mg/dL (70-220) mg/dL (70-220) mg/dL (70-220) JAY SHINE MD Aug 25, 2018 14:02
--- NOTE | 2018-08-25 16:34 | NUR ---
RN Notes: Dr. Mathews medically cleared pt to transfer to [facility]. Family choose [facility] and social work case manager arrange transfer and pt was accepted. DR. Mathews ordered to transfer pt to [facility]. Bulb Packer, Krishan coordinate with family and aware regarding transfer order, per Krishan pt will be going to [facility] room 208A and also he arranged transportation and will pear picker pt around 1800. Called [facility] spoke to Juanis, RN gave report. Pt remains alert and verbally responsive, afebrile, no acute distress noted, denies pain.discomfort, no sob noted. Accuchecked done, no s/sx of hypo/hyperglycemia noted. Skin generally clean and intact. Noted with Right sided weakness due to hx of CVA. Hourly rounding done, call light within reach, incontinence care done. Turned and repositioned. Will continue to monitor until the end of the shift. Addendum: 08/25/18 at 1840 by JOEY SANTOS RN EMT came and picked up pt to be transported to [facility]. Pt remains alert and verbally responsive, afebrile, VS WNL, no acute distress noted. Transfer paperwork gave to EMT. Pt left the unit in stable condition with all his belongings.
== END 2018-08-25 18:40 | DRG 312 ==
LOC: E/R 21:42 → ICU 08-22 01:57 → PP2 08-22 22:08
PROVIDERS: ADMIT Family Medicine; ATTEND Family Medicine
DX: R55 Syncope and collapse (principal); R00.1 Bradycardia, unspecified; I95.9 Hypotension, unspecified; F03.90 Unspecified dementia, unspecified severity, without behavioral disturbance, psychotic disturbance, mood disturbance, and anxiety; Z99.3 Dependence on wheelchair; I10 Essential (primary) hypertension; E11.9 Type 2 diabetes mellitus without complications; N40.0 Benign prostatic hyperplasia without lower urinary tract symptoms
CPT/HCPCS: 70450; 71045; 80053; 80061; 81001; 82270; 82550; 82553; 82728; 82962; 83036; 83540; 83735; 83880; 84443; 84484; 85025; 87081; 93005; 93306; 93880; 97110; 97161; 97167; J1644; J1815; J7030; J7040